=== PATIENT | female | born 1950 | race Caucasian/White ===

== ENCOUNTER 2021-08-29 16:09 | Outpatient (CLI) | payer MEDICARE, OTHER, SELFPAY ==
--- NOTE | ~2021-08-29 | CT_ITS ---
EXAMINATION: CT abdomen pelvis wo con DATE: 08/29/2021 16:38 INDICATION: Left-sided flank pain TECHNIQUE: Computed tomography (CT) of the abdomen and pelvis was performed without intravenous contr ast. Automated exposure control and iterative reconstruction technique were employed. The dose-length product was 274.53 mGy-cm. COMPARISON: None FINDINGS: Lung bases are clear. Heart size is normal. Atherosclerotic coronary artery calcific location. No per icardial or pleural effusion. Cardiac pacemaker lead near the apex of the right ventricle. Cholecyste ctomy clips at the gallbladder fossa. Multiple hepatic and splenic calcific lesions consistent with o ld granulomatous disease. Pancreas and bilateral adrenal glands are normal. 1.8 cm exophytic cyst at the upper pole of the left kidney. Right kidney is unremarkable. No urolithiasis or hydronephrosis. T here is moderate colonic diverticulosis with a sigmoid predominance. There is no adjacent inflammato ry change to suggest diverticulitis. No bowel obstruction. The appendix is not visualized. No pericec al inflammatory change to suggest acute appendicitis. There is calcified atherosclerosis of the aorta and many of the other arteries. Bladder is normal. The uterus is not identified and has likely been surgically resected. A few phleboliths along the left gonadal vein. No free intraperitoneal gas or fl uid. No pathologically enlarged abdominal or pelvic lymphadenopathy. Moderate to severe lower lumbar facet osteoarthritis. IMPRESSION: 1. No urolithiasis or acute intra-abdominal/pelvic process. Reviewed, dictated and finalized at location A. [employer]
== END 2021-08-29 16:10 | disposition home or self-care (01) ==
LOC: CHSIMG 16:17
PROVIDERS: PCP Internal Medicine; Visit Provider Internal Medicine
DX: N23 Unspecified renal colic (principal)
CPT/HCPCS: 74176